=== PATIENT | female | born 1960 | race Caucasian/White ===

== ENCOUNTER 2022-12-28 18:52 | Emergency (ER) | payer OTHER, BC ==
[~2022-12-28] VITALS: Ht 152.4 cm; Wt 63.6 kg
[2022-12-28 22:26] VITALS: BP 152/89
== END 2022-12-28 22:45 | disposition home or self-care (01) | DRG 605 ==
LOC: ED 18:52
PROC: 2W3EX1Z Immobilization of Right Hand using Splint (ICD-10-PCS; principal; 2022-12-28)
DX: S80.02XA Contusion of left knee, initial encounter (principal); S70.02XA Contusion of left hip, initial encounter; S33.5XXA Sprain of ligaments of lumbar spine, initial encounter; V29.408A Other motorcycle driver injured in collision with unspecified motor vehicles in traffic accident, initial encounter; S43.402A Unspecified sprain of left shoulder joint, initial encounter; S16.1XXA Strain of muscle, fascia and tendon at neck level, initial encounter; S62.304A Unspecified fracture of fourth metacarpal bone, right hand, initial encounter for closed fracture

== ENCOUNTER 2023-01-08 13:23 | Emergency (ER) | payer OTHER, BC ==
[2023-01-08] VITALS (7 sets, daily range): BP systolic 130–145; BP diastolic 76–94
[~2023-01-08] VITALS: Ht 152.4 cm; Wt 61.2 kg
[2023-01-08] MEDS ORDERED: TRAMADOL HYDROC50 M1 PO (16:29)
== END 2023-01-08 17:08 | disposition home or self-care (01) | DRG 556 ==
LOC: ED 13:23
DX: M25.552 Pain in left hip (principal); V29.508A Other motorcycle passenger injured in collision with unspecified motor vehicles in traffic accident, initial encounter; F17.200 Nicotine dependence, unspecified, uncomplicated